=== PATIENT | male | born 1945 | race Caucasian/White ===

== ENCOUNTER 2017-01-17 12:49 | Emergency (ER) | payer OTHER ==
[2017-01-17 13:00] VITALS: PULSE 70
--- NOTE | 2017-01-17 13:34 | EDPHY ---
H & P Time Seen by Provider: 01/17/17 13:29 HPI/ROS: CHIEF COMPLAINT: Dizziness, Weakness HISTORY OF PRESENT ILLNESS: The patient is a 71-year-old male with atrial fibrillation presenting with dizziness and generalized weakness. The patient developed gross hematuria 3 weeks ago. The hematuria lasted for 10 days, but has now resolved. He has been off his Xarelto since the onset of hematuria. The patient continues to have slight dysuria. Onset of a room spinning sensation yesterday evening while in bed. The room spinning sensation increased with head movement. He states he felt off balance with associated nausea. The dizziness has resolved today, but the patient feels weak and fatigued this morning. He denies ringing in ears or headache. No dark or bloody stools. No chest pain or shortness of breath. REVIEW OF SYSTEMS: A comprehensive 10 point review of systems is otherwise negative aside from elements mentioned in the history of present illness. Past Medical/Surgical History: Pacemaker, COPD, Atrial fibrillation Social History: Retired. . Lives in [place]. Smoking Status: Never smoked Physical Exam: General Appearance: Alert, pleasant Eyes: Pupils equal and round, conjunctival pallor, horizontal nystagmus with rightward gaze. ENT, Mouth: Mucous membranes moist Neck: Normal inspection Respiratory: Lungs are clear to auscultation Cardiovascular: Regular rate and rhythm Gastrointestinal: Abdomen is soft and non-tender Neurological: Alert, oriented x3, cranial nerves II through XII intact, motor 5 /5, sensory intact to light touch, normal gait Skin: Warm and dry Extremities: Nontender, no pedal edema Psychiatric: Mood and affect normal Constitutional: Initial Vital Signs Temperature (C) 37.0 C 01/17/17 12:57 Heart Rate 70 01/17/17 12:57 Respiratory Rate 16 01/17/17 12:57 Blood Pressure 140/89 H 01/17/17 12:57 O2 Sat (%) 95 01/17/17 12:57 O2 Delivery Mode Room Air Allergies/Adverse Reactions: No Known Allergies Allergy (Unverified 07/09/11 14:46) Home Medications: Medication Instructions Recorded Advair 100/50 (*) 01/17/17 Eliquis 01/17/17 Lipitor 01/17/17 SOTALOL 01/17/17 Ventolin Hfa Inhaler 01/17/17 Xarelto 01/17/17 Medical Decision Making - Diagnostics EKG Interpretation: EKG interpreted by me reveals atrial-ventricular dual-paced rhythm, normal axis , normal intervals, ST and T segments normal. Interpretation: normal EKG ED Course/Re-evaluation: This patient presents with generalized weakness after recent prolonged episode of gross hematuria. Clinically, he does not appear dehydrated and hematocrit is normal. Episode of vertigo last evening, continues to have horizontal nystagmus now, but is asymptomatic. Neurologic exam is normal. The episode of vertigo asleep most likely peripheral in etiology as he has no concerning signs or symptoms of a central etiology for vertigo. financial representative and EKG revealed a paced rhythm; I doubt that he had pacemaker malfunction causing the weakness or dizziness. EKG reveals a paced rhythm, no ischemic changes. Lab work is unremarkable. UA is positive for blood and RBC, no infection. 1515: asymptomatic, would like to go home. Had fluids and took a nap in ED. Will ambulate. Ambulates with a steady gait. He denies dizziness or weakness. Neurologic exam remains normal. Encouraged him to drink plenty of fluids and to return for worsening symptoms or any concerns. Differential Diagnosis: Dizziness including but not limited to peripheral and central causes of vertigo , orthostatic causes including dehydration, and blood loss. - Data Points Laboratory Results: Laboratory Results 01/17/17 13:45 01/17/17 13:45 Medications Given: Discontinued Medications Sodium Chloride (Ns) 500 mls @ 1,000 mls/hr IV EDNOW ONE PRN Reason: Protocol Stop: 01/17/17 14:23 Last Admin: 01/17/17 14:40 Dose: 500 mls Departure - Departure Disposition: Home, Routine, Self-Care Clinical Impression: Vertigo Condition: Good Instructions: Vertigo (ED) Additional Instructions: Take Meclizine as needed for dizziness. Follow up with your primary care physician in the office as needed. Referrals: Ela Ahmadi MD [Primary Care Provider] - As per Instructions Report Scribed for: Manisha Mooney Report Scribed by: Alana Fiore Date of Report: 01/17/17 Time of Report: 13:33 Physician Review and Approval Statement: 01/17/17 13:33 Portions of this note were transcribed by a medical records analyst. I personally performed the history, physical exam, and medical decision-making; and confirmed the accuracy of the information in the transcribed note.
--- NOTE | 2017-01-17 13:43 | CPEKG ---
Heart Rate: 74 RR Interval: 811 P-R Interval: 204 QRSD Interval: 146 QT Interval: 432 QTC Interval: 480 P Greenbank: 108 QRS Greenbank: -69 T Wave Greenbank: 88 EKG Severity - ABNORMAL ECG - EKG Impression: ATRIAL-VENTRICULAR DUAL-PACED RHYTHM Electronically Signed By: Manisha Mooney 17-Jan-2017 21:06:41
[2017-01-17 13:50] LABS: % IMMATURE GRANULYOCYTES 0.2 % (0.0-1.1); ABSOLUTE IMMATURE GRANULOCYTES 0.01 10^3/uL (0.00-0.10); ADD DIFF? NO; ADD MORPH? NO; ADD SCAN? NO; ATYPICAL LYMPHOCYTE FLAG 10 (0-99); FRAGMENT RBC FLAG 0 (0-99); HEMATOCRIT 40.7 % (40.0-51.0); HEMOGLOBIN 13.2 g/dL (13.7-17.5); LEFT SHIFT FLG 0 (0-99); LIPEMIA HEMOLYSIS FLAG 80 (0-99); MEAN CELL HEMOGLOBIN 32.8 pg (27.9-34.1); MEAN CELL HEMOGLOBIN CONCENTR. 32.4 g/dL (32.4-36.7); MEAN PLATELET VOLUME 9.4 fL (8.7-11.7); PLATELET CLUMPS FLAG 0 (0-99); PLATELET COUNT 220 10^3/uL (150-400); RED BLOOD CELL COUNT 4.03 10^6/uL (4.40-6.38); RED CELL DISTRIBUTION WIDTH 14.1 % (11.5-15.2)
[2017-01-17 13:56] LABS: COLOR YELLOW; LEUKOCYTE ESTERASE,URINE NEGATIVE (NEGATIVE); NITRITE,URINE NEGATIVE (NEGATIVE)
[2017-01-17 14:03] LABS: MUCUS TRACE /lpf (NONE-1+)
[2017-01-17] MEDS: NS 500 ML IV ONE (14:40)
[2017-01-17 14:52] LABS: ANION GAP 10 mEq/L (8-16); CALCIUM 9.4 mg/dL (8.5-10.4); CARBON DIOXIDE 25 mEq/l (22-31); CHLORIDE 103 mEq/L (97-110); CREATININE 0.9 mg/dL (0.7-1.3); GLOMERULAR FILTRATION RATE > 60; GLUCOSE 77 mg/dL (70-100); POTASSIUM 4.7 mEq/L (3.5-5.2); SODIUM 138 mEq/L (134-144)
[2017-01-17 15:51] VITALS: BP 135/85; RESP 18; TEMP 98.2; O2SAT 96
== END 2017-01-17 15:48 | disposition home or self-care (01) ==
DX: R42 Dizziness and giddiness (principal); J44.9 Chronic obstructive pulmonary disease, unspecified; E86.9 Volume depletion, unspecified; Z79.01 Long term (current) use of anticoagulants; Z95.0 Presence of cardiac pacemaker

== ENCOUNTER 2017-03-17 05:43 | Observation (INO) | payer OTHER ==
--- NOTE | 2017-03-16 16:47 | GHP ---
[f rep st] PREOP HISTORY AND PHYSICAL Amended report HISTORY OF PRESENT ILLNESS: This is a 71-year-old gentleman who has had significant BPH with urinary obstruction and he has an enlarged prostate with bladder outlet obstruction. He is also noted to have aortic atherosclerosis with diverticulosis/diverticulitis and he has had a recent cardiac clearance and discussion about stopping his anticoagulation has been had. He has had a cystoscopy and the cystoscopy reveals inflammatory polyps of the prostate. He has an element of urinary retention and significant bladder outlet obstruction and diverticula of the bladder. At the present time, he is admitted for a transurethral resection of the prostate. Indications, complications, and options have been discussed as well as risks associated. PAST MEDICAL HISTORY: BPH with obstruction, COPD, elevated PSA, hematuria, hypercholesterolemia. PAST SURGICAL HISTORY: GreenLight laser photovaporization of the prostate, hernia repair and pacemaker. MEDICATIONS: Advair, Ativan, Ventolin, Xarelto, sotalol, lisinopril, Lipitor, and atorvastatin. ALLERGIES: None. FAMILY HISTORY: Positive for cancer. SOCIAL HISTORY: Rare alcohol consumption. . Nonsmoker. Immunizations up to date. REVIEW OF SYSTEMS: CONSTITUTIONAL: Negative. HEENT: Negative. CARDIOVASCULAR: He has dyspnea on exertion. Denies chest pain. RESPIRATORY: Shortness of breath. Denies cough or productive cough. GASTROINTESTINAL: Negative. MUSCULOSKELETAL: Denies bone pain. PHYSICAL EXAMINATION: VITAL SIGNS: Stable. CHEST: Clear. HEART: Regular rate and rhythm. ABDOMEN: Normal. No organomegaly, rebound or guarding. LOWER EXTREMITIES: Normal. PLAN: At the present time, he is admitted for a TURP. /[id number]/MODL Add acc#, 03/16/17, stefano GAITAN
[2017-03-17] MEDS ORDERED: LR 1,000 ML IV ONE (06:02)
[2017-03-17 06:30] LABS: % IMMATURE GRANULYOCYTES 0.5 % (0.0-1.1); ABSOLUTE IMMATURE GRANULOCYTES 0.03 10^3/uL (0.00-0.10); ADD DIFF? NO; ADD MORPH? NO; ADD SCAN? NO; ATYPICAL LYMPHOCYTE FLAG 10 (0-99); FRAGMENT RBC FLAG 0 (0-99); HEMATOCRIT 36.8 % (40.0-51.0); HEMOGLOBIN 12.4 g/dL (13.7-17.5); LEFT SHIFT FLG 0 (0-99); LIPEMIA HEMOLYSIS FLAG 80 (0-99); MEAN CELL HEMOGLOBIN 32.5 pg (27.9-34.1); MEAN CELL HEMOGLOBIN CONCENTR. 33.7 g/dL (32.4-36.7); MEAN CELL VOLUME 96.3 fL (81.5-99.8); MEAN PLATELET VOLUME 9.2 fL (8.7-11.7); PLATELET CLUMPS FLAG 0 (0-99); PLATELET COUNT 250 10^3/uL (150-400); RED BLOOD CELL COUNT 3.82 10^6/uL (4.40-6.38); RED CELL DISTRIBUTION WIDTH 13.1 % (11.5-15.2)
[2017-03-17] MEDS ORDERED: ceFAZolin 2 GM/SWFI 2 GM/20 ML SYR IVP ONE (07:01)
--- NOTE | 2017-03-17 07:02 | PDHPUP ---
History & Physical Update H&P update statement: This history and physical update is based on an assessment of the patient which was completed after admission or registration (within 24 hours), but prior to the surgery/procedure. H&P update: H&P reviewed & patient examined, no change in patient's condition since H&P completed
[2017-03-17] MEDS ORDERED: LIDOCAINE 2% JELLY 20 ML (UROJECT) ONE (07:07)
--- NOTE | 2017-03-17 07:09 | PDANEPAE ---
ANE History of Present Illness 71 year old male w/ intermittent a. Fib (has pacer / AICD - last interogated on 2016 - report reviewed by anesthesiologist this morning), COPD, AL ( CPAP present with patient), BPH presents for TURP. ANE Past Medical History - Cardiovascular History Hx Hypertension: No Hx Arrhythmias: Yes Hx Chest Pain: No Hx Coronary Artery / Peripheral Vascular Disease: No Hx CHF / Valvular Disease: No Hx Palpitations: No - Pulmonary History Hx COPD: Yes Hx Asthma/Reactive Airway Disease: No Hx Recent Upper Respiratory Infection: No Hx Oxygen in Use at Home: No Hx Sleep Apnea: Yes Sleep Apnea Screening Result - Last Documented: Positive Pulmonary History Comment: sleep apnea - Neurologic History Hx Cerebrovascular Accident: No Hx Seizures: No Hx Dementia: No - Endocrine History Hx Diabetes: No Hypothyroid: No Hyperthyroid: No Obesity: mild - Renal History Hx Renal Disorders: Yes Renal History Comment: BPH - Liver History Hx Hepatic Disorders: No - Neurological & Psychiatric Hx Hx Neurological and Psychiatric Disorders: No - Cancer History Hx Cancer: No - Congenital Disorder History Hx Congenital Disorders: No - GI History Hx Gastrointestinal Disorders: No - Other Health History Other Health History: MINE GAYTAN - Chronic Pain History Chronic Pain: Yes (LEFT ELBOW) - Surgical History Prior Surgeries: ppm ANE Review of Systems Review of Systems: - Exercise capacity Exercise capacity: <4 METS METS (RN): 4 METS - Pacemaker Pacemaker Type: Permanent Pacer/Defib Pacemaker Personal Care Aid: Medtronic Pacemaker Model: adapta Pacemaker Mode: DDDR Date Pacemaker Last Checked: 12/29/16 ANE Patient History - Allergies Allergies/Adverse Reactions: rosuvastatin [From Crestor] Allergy (Intermediate, Verified 03/17/17 06:32) Other-Enter Comments - Home Medications Home medications: home medication list seen and reviewed Home Medications: Advair 100/50 (*) 01/17/17 [Last Taken 03/16/17 19:30] Lipitor 01/17/17 [Last Taken 03/16/17 07:00] SOTALOL 01/17/17 [Last Taken 03/16/17 07:00] Ventolin Hfa Inhaler 01/17/17 [Last Taken 03/15/17 14:00 90 MCG] Xarelto 01/17/17 [Last Taken 03/13/17 07:00] - NPO status NPO Status: no food or drink >8 hours NPO Since - Liquids (Date): 03/16/17 NPO Since - Liquids (Time): 20:00 NPO Since - Solids (Date): 03/16/17 NPO Since - Solids (Time): 20:00 - Anes Hx Anes Hx: no prior problems - Smoking Hx Smoking Status: Never smoked - Alcohol Use Alcohol Use: Rarely - Family Anes Hx Family Anes Hx: neg - N/A Family Hx Anesthesia Complications: none ANE Labs/Vital Signs - Labs Result Diagrams: 03/17/17 06:15 - Vital Signs Vital Signs: reviewed preoperatively; see RN documention for details Blood Pressure: 130/84 Heart Rate: 72 Respiratory Rate: 18 O2 Sat (%): 94 Height: 180.34 cm Weight: 97.976 kg ANE Physical Exam - Airway Neck exam: FROM, increased neck circumference Mallampati Score: Class 3 Mouth exam: dentures, small mouth opening - Pulmonary Pulmonary: reduced air movement - Cardiovascular Cardiovascular: regular rate and rhythym - ASA Status ASA Status: III ANE Anesthesia Plan Anesthesia Plan: general endotracheal anesthesia Total IV Anesthesia: No
[2017-03-17] MEDS ORDERED: PROPOFOL 200 MG/20 ML VIAL ONE (07:13)
[2017-03-17] MEDS ORDERED: fentaNYL 100 MCG/2 ML INJ ONE ×2 (07:13→08:57)
[2017-03-17] MEDS ORDERED: ROCURONIUM 50 MG/5 ML VIAL ONE (07:14)
[2017-03-17] MEDS ORDERED: LIDOCAINE 2% 5 ML SDV ONE (07:14)
[2017-03-17] MEDS ORDERED: DEXAMETHASONE 4 MG/ML VIAL ONE (07:18)
[2017-03-17] MEDS ORDERED: ONDANSETRON 4 MG/2 ML VIAL ONE (07:18)
[2017-03-17] MEDS ORDERED: NALOXONE HCL 0.4 MG/ML INJ IVP PRN (08:03)
[2017-03-17] MEDS ORDERED: ONDANSETRON 4 MG/2 ML VIAL IVP PRN ×2 (08:03→08:35)
[2017-03-17] MEDS ORDERED: LR 500 ML IV PRN (08:03)
[2017-03-17] MEDS ORDERED: HYDROmorphONE/DILAUDID 1 MG/ML INJ IVP PRN (08:03)
[2017-03-17] MEDS ORDERED: HYDROCODONE/APAP 5/325 TAB PO PRN (08:03)
[2017-03-17] MEDS ORDERED: SUGAMMADEX SODIUM 200 MG/2 ML VIAL IVP ONE (08:22)
[2017-03-17] MEDS ORDERED: OPIUM/BELLADONNA ALKALO SUPP PR PRN (08:33)
[2017-03-17] MEDS ORDERED: ONDANSETRON DISINTEGRATING 4 MG TAB PO PRN (08:35)
[2017-03-17] MEDS ORDERED: ACETAMINOPHEN 325 MG TAB PO PRN (08:35)
--- NOTE | 2017-03-17 08:38 | POSTOPPROG ---
Post Op Note Date of Operation: 03/17/17 Surgeon: Garfield Powell Anesthesia: LMA Pre-op Diagnosis: bph Procedure: turp Inf/Abcess present in the surg proc area at time of surgery?: No EBL: 50-100 Drains: Other (gonzales) Specimen(s): sent=====dictated
[2017-03-17] MEDS ORDERED: D5W LR 1,000 ML IV SCH (08:45)
[2017-03-17] MEDS: fentaNYL 100 MCG/2 ML INJ IVP PRN ×2 (08:59→09:08)
[2017-03-17] MEDS ORDERED: OPIUM/BELLADONNA ALKALO SUPP PR ONE (09:11)
[2017-03-17] MEDS ORDERED: HYDROmorphONE/DILAUDID 1 MG/ML INJ IVP ONE (10:50)
[2017-03-17] MEDS: HYDROCODONE/APAP 5/325 TAB PO PRN ×3 (11:37→21:35)
--- NOTE | 2017-03-17 17:37 | POSTANESTH ---
Post Anesthetic Evaluation Cardiovascular Status: Normal, Stable, Similar to Pre-Op Cond Respiratory Status: Normal, Stable, Similar to Pre-op Cond. Level of Consciousness/Mental Status: Can Participate in Eval, Alert and Oriented Pain Control: Adequate, Prn Tx Ordered Nausea/Vomiting Control: Adequate, Prn Tx Ordered Complications Possibly Related to Anesthesia: None Noted
--- NOTE | 2017-03-17 18:19 | GOP ---
[f rep st] OPERATIVE REPORT DATE OF OPERATION: 03/17/2017 SURGEON: Garfield Powell MD PREOPERATIVE DIAGNOSIS: Benign prostatic hypertrophy, gross hematuria, and obstruction. POSTOPERATIVE DIAGNOSIS: Benign prostatic hypertrophy, gross hematuria, and obstruction. PROCEDURE PERFORMED: Transurethral resection of prostate. FINDINGS: DESCRIPTION OF PROCEDURE: This gentleman underwent general anesthesia. After appropriate prep, drape and time-out, scope was passed in. He had some stones at the bladder neck, which were resected. I th en started the resection by taking down the left lateral lobe, left posterior lobe, right lateral lob e, and right posterior lobe. These included the intravesical lobe. At the end of the procedure, he bob d apex and verumontanum preserved. Bladder was normal and intact. Bladder was Ellik'd free of all chi ps and clots. Visualization revealed no residual chips or clots and ureteral orifices preserved. A 22 three-way catheter was passed into the bladder over a Mandarin guide, af 60 cc balloon inflated, tra ction placed, and irrigated clear. Uro-Jet had been placed in the urethra. He will be admitted for po stoperative care. Preoperatively discussed with him, with his anticoagulation, that his risk of bleeding postop is more significant than somebody who is not anticoagulated. He was well aware of that, but at the present t jeff things look hemostatic, and he is admitted as noted. /[id number]/MODL
[2017-03-18] MEDS: HYDROCODONE/APAP 5/325 TAB PO PRN (01:25)
[2017-03-18] MEDS ORDERED: DIAZEPAM 10 MG/2 ML SYR IVP PRN (05:25)
--- NOTE | 2017-03-18 09:00 | SOAPPROG ---
SOAP Progress Note Assessment/Plan: Assessment: BPH associated with nocturia Acute POD#1, cath out and dc if pt voids Plan: DC later today 03/18/17 08:59 Objective: Vital Signs Temp Pulse Resp BP Pulse Ox 36.2 C 72 19 114/83 H 97 03/18/17 08:30 03/18/17 08:30 03/18/17 08:30 03/18/17 08:30 03/18/17 08:30 Laboratory Results 03/17/17 06:15 03/17/17 03/18/17 03/19/17 05:59 05:59 05:59 Intake Total 2200 Output Total -425 Balance 2625 ICD10 Worksheet Patient Problems: Problems Problem Status Onset BPH associated with nocturia Acute - ICD10 Problem Qualifiers (1) BPH associated with nocturia
[2017-03-18 12:34] VITALS: RESP 18
[2017-03-18 15:12] VITALS: BP 144/91; PULSE 70; TEMP 97.7; O2SAT 97
--- NOTE | 2017-03-18 15:39 | ASDISCHSUM ---
Discharge Information Plan Status: Medically Cleared to Leave: Discharge Date: CM D/C Disposition: ADT D/C Disposition:Home, Routine, Self-Care Projected Discharge Date: Transportation at D/C: Discharge Delay Reason: Follow-Up Date: Discharge Slot: Final Diagnosis: Placement Information Patient Contact Information Contact Name:ZANDRA Relationship:Friend Address: Work Phone: City:[place] Alternate Phone: State/Zip Code:[place] Email: Financial Information Financial Class:Medicare Advantage Plans Primary Plan Desc:[employer] [facility] AD[employer]AGE PLAN Primary Plan Number:[id number] Secondary Plan Desc: Secondary Plan Number: Assessment Information [facility] CM Progress Note CM Note CM Note Notes: Pt to DC today with no DC needs. Date Signed: 03/18/2017 03:38 PM Electronically Signed By:Roxane Whiting LCSW Intervention Information Intervention Type:*KELLEY-Signed Date of Service:03/18/2017 09:36 AM Patient Type:Observation Staff Member:Laine Kerr Hours: Discipline: Severity: Comment:
--- NOTE | 2017-03-18 20:24 | GDS ---
[f rep st] DISCHARGE SUMMARY PREOPERATIVE/POSTOPERATIVE DIAGNOSES: Benign prostatic hypertrophy, gross hematuria and obstruction. HOSPITAL COURSE: The patient was admitted and underwent a transurethral resection of the prostate without difficulty. He is being discharged home in good condition without a Ramirez catheter. He is to avoid strenuous activity and lifting over 15 pounds until we see him back in the office. He is also to restart his anticoagulation in 1 week. Follow up in 3 weeks with us. /[id number]/MODL MTDD
== END 2017-03-18 16:00 | disposition home or self-care (01) ==
LOC: F1N 05:43
PROVIDERS: ADMIT Specialist; ATTEND Specialist
PROC: 0VT08ZZ Resection of Prostate, Via Natural or Artificial Opening Endoscopic (ICD-10-PCS; principal; 2017-03-17 07:15)
DX: N40.1 Benign prostatic hyperplasia with lower urinary tract symptoms (principal); N32.0 Bladder-neck obstruction; J44.9 Chronic obstructive pulmonary disease, unspecified; G47.33 Obstructive sleep apnea (adult) (pediatric); Z79.01 Long term (current) use of anticoagulants; Z95.0 Presence of cardiac pacemaker
CPT/HCPCS: 52601; 88305; G0378; J0690; J1100; J1170; J2405; J2704; J3010